=== PATIENT | male | born 1940 | race Caucasian/White ===

== ENCOUNTER 2016-06-23 20:53 | Emergency (ER) | payer MEDICARE ==
[2016-06-23 23:46] LABS: HEMOGLOBIN 14.1 gm/dl (14.0-17.5); RED BLOOD COUNT 4.99 M/UL (4.20-5.50); WHITE BLOOD COUNT 10.3 K/UL (4.5-11.0)
== END 2016-06-24 01:20 | disposition home or self-care (01) ==
LOC: ER1 20:53
PROVIDERS: Emergency Medicine
DX: R53.1 Weakness (principal); R51 Headache; J18.9 Pneumonia, unspecified organism; W19.XXXA Unspecified fall, initial encounter
CPT/HCPCS: 36415; 70450; 72125; 72128; 72131; 80053; 82550; 82553; 83874; 83880; 84484; 85025; 93005; 99284